=== PATIENT | female | born 1960 | race Two or more races ===

== ENCOUNTER 2022-12-07 21:41 | Emergency (ER) | payer SELFPAY ==
[~2022-12-07] VITALS: Ht 165.1 cm; Wt 55.3 kg
[2022-12-07] MEDS ORDERED: HYDROCODONE/APAP 5/325MG TABLET ONE (23:21)
[2022-12-07] MEDS ORDERED: HYDROCODONE/APAP 5/325MG TABLET PO ONE (23:30)
[2022-12-08] MEDS ORDERED: ONDANSETRON 4 MG TAB.RAPDIS ONE (01:24)
[2022-12-08] MEDS ORDERED: ONDANSETRON 4 MG TAB.RAPDIS SL ONE (01:30)
[2022-12-08] MEDS ORDERED: IBUP-1957 PO (02:20)
[2022-12-08 02:40] VITALS: BP 138/82; TEMP 98.2; O2SAT 100
== END 2022-12-08 02:40 | disposition home or self-care (01) ==
LOC: ER 21:50
DX: S83.91XA Sprain of unspecified site of right knee, initial encounter (principal); M17.11 Unilateral primary osteoarthritis, right knee; Z88.5 Allergy status to narcotic agent; Z88.8 Allergy status to other drugs, medicaments and biological substances; X50.1XXA Overexertion from prolonged static or awkward postures, initial encounter; Y93.89 Activity, other specified; Y92.89 Other specified places as the place of occurrence of the external cause; Y99.8 Other external cause status
CPT/HCPCS: 99284; 29505; 93971; 73700; Q0162